=== PATIENT | female | born 1935 | race Two or more races ===

== ENCOUNTER 2020-02-02 11:40 | Outpatient (CLI) | payer MEDICARE, OTHER | END 2020-02-02 23:59 | disposition home or self-care (01) | LOC: WOU 11:40 | PROVIDERS: ATTEND Surgery | DX: L89.894 Pressure ulcer of other site, stage 4 (principal); L03.116 Cellulitis of left lower limb; L89.152 Pressure ulcer of sacral region, stage 2; N18.6 End stage renal disease; Z99.2 Dependence on renal dialysis; E46 Unspecified protein-calorie malnutrition; Z68.24 Body mass index [BMI] 24.0-24.9, adult; F03.90 Unspecified dementia, unspecified severity, without behavioral disturbance, psychotic disturbance, mood disturbance, and anxiety; Z79.899 Other long term (current) drug therapy | CPT/HCPCS: 11043 ==

== ENCOUNTER 2020-02-09 12:00 | Outpatient (CLI) | payer MEDICARE, OTHER | END 2020-02-09 23:59 | disposition home or self-care (01) | LOC: WOU 12:00 | PROVIDERS: ATTEND Surgery | DX: L89.894 Pressure ulcer of other site, stage 4 (principal); L89.154 Pressure ulcer of sacral region, stage 4; L03.116 Cellulitis of left lower limb; N18.6 End stage renal disease; Z99.2 Dependence on renal dialysis; E46 Unspecified protein-calorie malnutrition; Z68.24 Body mass index [BMI] 24.0-24.9, adult; F03.90 Unspecified dementia, unspecified severity, without behavioral disturbance, psychotic disturbance, mood disturbance, and anxiety; Z79.899 Other long term (current) drug therapy | CPT/HCPCS: 11043; 36415; 84134-TC ==

== ENCOUNTER 2020-02-23 11:52 | Outpatient (CLI) | payer MEDICARE, OTHER | END 2020-02-23 23:59 | disposition home or self-care (01) | LOC: WOU 11:52 | PROVIDERS: ATTEND Surgery | DX: L89.894 Pressure ulcer of other site, stage 4 (principal); L89.154 Pressure ulcer of sacral region, stage 4; N18.6 End stage renal disease; Z99.2 Dependence on renal dialysis; F03.90 Unspecified dementia, unspecified severity, without behavioral disturbance, psychotic disturbance, mood disturbance, and anxiety; E46 Unspecified protein-calorie malnutrition; Z68.24 Body mass index [BMI] 24.0-24.9, adult; Z79.899 Other long term (current) drug therapy | CPT/HCPCS: 11043 ==

== ENCOUNTER 2020-03-01 11:45 | Outpatient (CLI) | payer MEDICARE, OTHER | END 2020-03-01 23:59 | disposition home health service (06) | LOC: WOU 11:45 | PROVIDERS: ATTEND Surgery | DX: L89.894 Pressure ulcer of other site, stage 4 (principal); L89.154 Pressure ulcer of sacral region, stage 4; L03.116 Cellulitis of left lower limb; N18.6 End stage renal disease; Z99.2 Dependence on renal dialysis; F03.90 Unspecified dementia, unspecified severity, without behavioral disturbance, psychotic disturbance, mood disturbance, and anxiety; E46 Unspecified protein-calorie malnutrition; Z68.24 Body mass index [BMI] 24.0-24.9, adult; Z79.899 Other long term (current) drug therapy | CPT/HCPCS: 11043; A6209 ==

== ENCOUNTER 2020-03-08 11:58 | Outpatient (CLI) | payer MEDICARE, OTHER | END 2020-03-08 23:59 | disposition home health service (06) | LOC: WOU 11:58 | PROVIDERS: ATTEND Surgery | DX: L89.894 Pressure ulcer of other site, stage 4 (principal); L89.154 Pressure ulcer of sacral region, stage 4; L03.116 Cellulitis of left lower limb; N18.6 End stage renal disease; Z99.2 Dependence on renal dialysis; F03.90 Unspecified dementia, unspecified severity, without behavioral disturbance, psychotic disturbance, mood disturbance, and anxiety; E46 Unspecified protein-calorie malnutrition; Z68.24 Body mass index [BMI] 24.0-24.9, adult; Z79.899 Other long term (current) drug therapy | CPT/HCPCS: 11043; A6209 ==

== ENCOUNTER 2020-03-15 12:00 | Outpatient (CLI) | payer MEDICARE, OTHER | END 2020-03-15 23:59 | disposition home health service (06) | LOC: WOU 12:00 | PROVIDERS: ATTEND Surgery | DX: L89.894 Pressure ulcer of other site, stage 4 (principal); L89.154 Pressure ulcer of sacral region, stage 4; L03.116 Cellulitis of left lower limb; N18.6 End stage renal disease; Z99.2 Dependence on renal dialysis; F03.90 Unspecified dementia, unspecified severity, without behavioral disturbance, psychotic disturbance, mood disturbance, and anxiety; E46 Unspecified protein-calorie malnutrition; Z68.24 Body mass index [BMI] 24.0-24.9, adult | CPT/HCPCS: 11043 ==

== ENCOUNTER 2020-03-22 11:47 | Outpatient (CLI) | payer MEDICARE, OTHER | END 2020-03-22 23:59 | disposition home health service (06) | LOC: WOU 11:47 | PROVIDERS: ATTEND Surgery | DX: L89.894 Pressure ulcer of other site, stage 4 (principal); L89.154 Pressure ulcer of sacral region, stage 4; L03.116 Cellulitis of left lower limb; N18.6 End stage renal disease; Z99.2 Dependence on renal dialysis; F03.90 Unspecified dementia, unspecified severity, without behavioral disturbance, psychotic disturbance, mood disturbance, and anxiety; E46 Unspecified protein-calorie malnutrition; Z68.24 Body mass index [BMI] 24.0-24.9, adult; Z79.899 Other long term (current) drug therapy | CPT/HCPCS: 11043 ==

== ENCOUNTER 2020-03-29 11:55 | Outpatient (CLI) | payer MEDICARE, OTHER | END 2020-03-29 23:59 | disposition home health service (06) | LOC: WOU 11:55 | PROVIDERS: ATTEND Surgery | DX: L89.894 Pressure ulcer of other site, stage 4 (principal); L89.154 Pressure ulcer of sacral region, stage 4; L03.116 Cellulitis of left lower limb; N18.6 End stage renal disease; Z99.2 Dependence on renal dialysis; E46 Unspecified protein-calorie malnutrition; Z68.24 Body mass index [BMI] 24.0-24.9, adult; F03.90 Unspecified dementia, unspecified severity, without behavioral disturbance, psychotic disturbance, mood disturbance, and anxiety; Z79.899 Other long term (current) drug therapy | CPT/HCPCS: 11043 ==

== ENCOUNTER 2020-04-05 11:38 | Outpatient (CLI) | payer MEDICARE, OTHER | END 2020-04-05 23:59 | disposition home health service (06) | LOC: WOU 11:38 | PROVIDERS: ATTEND Surgery | DX: L89.894 Pressure ulcer of other site, stage 4 (principal); L89.154 Pressure ulcer of sacral region, stage 4; E46 Unspecified protein-calorie malnutrition; Z68.24 Body mass index [BMI] 24.0-24.9, adult; L03.116 Cellulitis of left lower limb; N18.6 End stage renal disease; Z99.2 Dependence on renal dialysis; F03.90 Unspecified dementia, unspecified severity, without behavioral disturbance, psychotic disturbance, mood disturbance, and anxiety; Z79.899 Other long term (current) drug therapy | CPT/HCPCS: 11043 ==

== ENCOUNTER 2020-04-12 11:20 | Outpatient (CLI) | payer MEDICARE, OTHER | END 2020-04-12 23:59 | disposition home health service (06) | LOC: WOU 11:20 | PROVIDERS: ATTEND Surgery | DX: L89.894 Pressure ulcer of other site, stage 4 (principal); L03.114 Cellulitis of left upper limb; E46 Unspecified protein-calorie malnutrition; Z68.24 Body mass index [BMI] 24.0-24.9, adult; N18.6 End stage renal disease; Z99.2 Dependence on renal dialysis; F03.90 Unspecified dementia, unspecified severity, without behavioral disturbance, psychotic disturbance, mood disturbance, and anxiety; Z79.899 Other long term (current) drug therapy | CPT/HCPCS: 11043 ==

== ENCOUNTER 2020-04-26 11:00 | Outpatient (CLI) | payer MEDICARE, OTHER | END 2020-04-26 23:59 | disposition home health service (06) | LOC: WOU 11:00 | PROVIDERS: ATTEND Surgery | DX: L89.154 Pressure ulcer of sacral region, stage 4 (principal); E46 Unspecified protein-calorie malnutrition; Z68.24 Body mass index [BMI] 24.0-24.9, adult; L03.114 Cellulitis of left upper limb; N18.6 End stage renal disease; Z99.2 Dependence on renal dialysis; F03.90 Unspecified dementia, unspecified severity, without behavioral disturbance, psychotic disturbance, mood disturbance, and anxiety | CPT/HCPCS: 11042; 11043 ==

== ENCOUNTER 2020-05-03 10:54 | Outpatient (CLI) | payer MEDICARE, OTHER | END 2020-05-03 23:59 | disposition home health service (06) | LOC: WOU 10:54 | PROVIDERS: ATTEND Surgery | DX: L03.315 Cellulitis of perineum (principal); L98.9 Disorder of the skin and subcutaneous tissue, unspecified; E46 Unspecified protein-calorie malnutrition; Z68.24 Body mass index [BMI] 24.0-24.9, adult; N18.6 End stage renal disease; Z99.2 Dependence on renal dialysis; F03.90 Unspecified dementia, unspecified severity, without behavioral disturbance, psychotic disturbance, mood disturbance, and anxiety | CPT/HCPCS: G0463 ==

== ENCOUNTER 2020-05-31 12:15 | Outpatient (CLI) | payer MEDICARE, OTHER | END 2020-05-31 23:59 | disposition home health service (06) | LOC: WOU 12:15 | PROVIDERS: ATTEND Surgery | DX: L89.154 Pressure ulcer of sacral region, stage 4 (principal); L89.314 Pressure ulcer of right buttock, stage 4; S51.812D Laceration without foreign body of left forearm, subsequent encounter; X58.XXXD Exposure to other specified factors, subsequent encounter; L03.114 Cellulitis of left upper limb; L03.315 Cellulitis of perineum; N18.6 End stage renal disease; Z99.2 Dependence on renal dialysis; E46 Unspecified protein-calorie malnutrition; Z68.24 Body mass index [BMI] 24.0-24.9, adult; F03.90 Unspecified dementia, unspecified severity, without behavioral disturbance, psychotic disturbance, mood disturbance, and anxiety; Z79.899 Other long term (current) drug therapy; Z79.82 Long term (current) use of aspirin | CPT/HCPCS: 11043; A6209 ==

== ENCOUNTER 2020-06-14 12:10 | Outpatient (CLI) | payer MEDICARE, OTHER ==
[2020-06-14] MEDS ORDERED: LIDOCAINE SOLN 4% 50 ML BOTTLE ONE ×2 (12:17→12:44)
== END 2020-06-14 23:59 | disposition home health service (06) ==
LOC: WOU 12:10
PROVIDERS: ATTEND Surgery
DX: L89.154 Pressure ulcer of sacral region, stage 4 (principal); L89.314 Pressure ulcer of right buttock, stage 4; L89.626 Pressure-induced deep tissue damage of left heel; L89.616 Pressure-induced deep tissue damage of right heel; L89.896 Pressure-induced deep tissue damage of other site; S51.812D Laceration without foreign body of left forearm, subsequent encounter; X58.XXXD Exposure to other specified factors, subsequent encounter; L03.114 Cellulitis of left upper limb; F03.90 Unspecified dementia, unspecified severity, without behavioral disturbance, psychotic disturbance, mood disturbance, and anxiety; N18.6 End stage renal disease; Z99.2 Dependence on renal dialysis
CPT/HCPCS: 11043; A6209